=== PATIENT | female | born 1980 | race Caucasian/White ===

== ENCOUNTER 2016-08-16 12:42 | Emergency (ER) | payer OTHER ==
[2016-08-16 13:19] VITALS: BP 104/66
--- OUTSIDE RECORDS SUMMARY | 2016-08-16 14:29 | XMS REPORT | Continuity of Care Document ---
:1980 Author Organization [facility] ([facility]) Address [address] [place] [address] Phone [phone] Care Team Providers Name Role Phone Provider, No-Primary Care Primary Care Provider Unavailable Source Comments This disclosure is being made pursuant to the Care Everywhere program, applicable federal and state laws, and may not contain all informaitonavailable regarding this patient.[facility] ([facility]) Active Allergies and Adverse Reactions Not on File Current Medications Not on file Active Problems Not on file Social History Tobacco Use Types Packs/Day Years Used Date Never Assessed Plan of Care Health Maintenance Due Date Last Done Comments Hepatitis B Vaccine (1 of 3 - Primary Series) 1980 Tdap Vaccine 1992 Lipid Disorder Screening 12/03/1999 MMR Vaccine 12/03/1999 Td Vaccine 12/03/1999 Varicella Vaccine (1 of 2 - Adult - No Evidence of 12/03/1999 Immunity) Cervical Cancer Screening 12/03/2011 Influenza Vaccine: Seasonal (#1) 12/29/2015 Results from Last 3 Months Not on file
== END 2016-08-16 13:58 | disposition left against medical advice (07) ==
LOC: ER 12:42
DX: Z53.21 Procedure and treatment not carried out due to patient leaving prior to being seen by health care provider (principal)

== ENCOUNTER 2016-08-26 08:26 | Emergency (ER) | payer OTHER ==
--- OUTSIDE RECORDS SUMMARY | 2016-08-26 08:44 | XMS REPORT | Continuity of Care Document ---
:1980 Author Organization [facility] ([facility]) Address [address] [place] [address] Phone [phone] Care Team Providers Name Role Phone Provider, No-Primary Care Primary Care Provider Unavailable Source Comments This disclosure is being made pursuant to the Care Everywhere program, applicable federal and state laws, and may not contain all informaitonavailable regarding this patient.[facility] ([facility]) Active Allergies and Adverse Reactions Not [...]
--- NOTE | 2016-08-26 08:46 | ERNOTE ---
ER Female HPI Stated Complaint: HEAVY BLEEDING Presenting Symptoms: vaginal bleeding Time Seen by Provider: 08/26/16 08:37 Source: patient Immunizations: IMMUNIZATION HX Immunizations Up to Date Yes History of Influenza Vaccine Yes Hx Pneumococcal Vaccination Yes Allergies/Adverse Reactions: Allergies meperidine HCl [From Demerol] Adverse Reaction (Verified 08/26/16 08:36) Vomiting Home Medications: HOME MEDICATIONS NK [No Home Medication] 08/16/16 [Last Taken Unknown] - History of Present Illness Narrative: Patient stated that 2 hours ago she developed some lower pelvis and right side of the lower pelvis cramping with vaginal bleeding with possible tissue. Timing: Present: intermittent Quality: Present: moderate Activities at Onset: Present: none Prior Abdominal Problems: Present: none Review of Systems - Review of Systems Constitutional: Present: See HPI EYE: Present: no symptoms reported ENT: Present: no symptoms reported Respiratory: Present: no symptoms reported Cardiology: Present: no symptoms reported Gastrointestinal/Abdominal: Present: no symptoms reported Genitourinary: Present: no symptoms reported Musculoskeletal: Present: no symptoms reported Skin: Present: no symptoms reported Neurological: Present: no symptoms reported Endocrine: Present: no symptoms reported Hematologic/Lymphatic: Present: no symptoms reported Psych: Present: no symptoms reported - Patient's Past Medical History Patient History - Medical: Other Patient History - Cardiac/Respiratory: No pertinent hx Patient History - Cancer: No Hx of Cancer Patient History - Surgical Procedures: Patient History - Other: None LMP (females 10-50): - Family History Mother Family History - Medical: Arthritis Family History - Cardiac/Respiratory: No pertinent hx - Social History Living Situations: parents Abuse History: No History of abuse Psych History: No pertinent hx Smoking Status: Current every day smoker Alcohol Use: none Drug Use: none - Immunizations Immunizations Up to Date: Yes Hx Pneumococcal Vaccination: Yes History of Influenza Vaccine: Yes Physical Exam - Physical Exam General Appearance: Present: wd/wn, alert, mild distress Eye Exam: Normal inspection: bilateral, PERRL: bilateral Ears, Nose, Throat: Present: normal ENT inspection, H, normal pharynx Neck: Present: normal inspection, nontender Respiratory: Present: no respiratory distress, normal breath sounds, no accessory muscle use, chest nontender, lungs clear Cardiovascular/Chest: Present: regular rate, rhythm, no murmur, normal peripheral pulses Gastrointestinal/Abdominal: Present: normal bowel sounds, nondistended, soft, no organomegaly, tenderness Rectal Exam: Present: deferred Back Exam: Present: normal inspection, normal range of motion Extremity Exam: Present: normal inspection, non-tender, no edema, normal range of motion Neurological Exam: Present: alert, oriented, normal mood/affect Skin Exam: Present: normal color, warm/dry Lymphatic Exam: Present: no adenopathy Pelvic Exam: Present: active bleeding, tender adnexa - on the right ED Progress - Results and Orders Patient's Lab Results:: I have reviewed the patient's lab results. - Vital Signs Patient's Vital Signs:: I have reviewed the patient's vital signs. Vital Signs: Vital Signs 08/26/16 08:29 Temperature 36.7 C Pulse Rate 104 H Respiratory 14 Rate Blood Pressure 103/64 O2 Sat by Pulse 97 Oximetry - CT/Ultrasound CT/Ultrasound Narrative: pelvic US noted - Progress/Reassessment Chief Complaint: OB Screening Plan - Plan Plan: I had a long discussion with the patient regarding the possibility of this being a miscarriage although certainly ectopic cannot be excluded. Aidan to call her OB physician and talk with him about the next step that she may need to take. Patient will need to have a repeat hCG as well as a repeat ultrasound to make sure that this is not been due to an ectopic and that this is most likely a miscarriage. She appeared to understand the instructions and she will call her OB doctor today for an appointment. Departure Clinical Impression: Incomplete miscarriage - Departure Disposition: Home self-care Condition: Good Instructions: Vaginal Bleeding During , First Trimester Referrals: Loco Delgado MD [Primary Care Provider] - Gerhard Solis DO [Staff Physician] -
[2016-08-26 09:01] LABS: Hematocrit 36.6 % (37.0-47.0); Hemoglobin 12.5 gm/dL (12.5-16.0); Mean Cell Volume 91.5 fl (78-100); Mean Corpuscular Hemoglobin 31.3 pg (27-31); Mean Corpuscular Hgb Conc 34.2 g/dl (32-36); Mean Platelet Volume 10.4 fl (6.0-9.5); Neutrophil # 4.6 K/mm3 (1.3-6.0); Neutrophil % 73.3 % (42-75.0); Platelet Count 188 K/mm3 (150-450); Red Cell Distribution Width 12.9 % (11.5-14.0); White Blood Count 6.2 K/mm3 (4.0-10.5)
[2016-08-26 09:13] LABS: Prothrombin Time (Patient) 9.9 Seconds (9.4-11.4)
[2016-08-26 09:15] LABS: INR 0.95 INR (0.90-1.10)
[2016-08-26 09:19] LABS: Albumin * 3.4 gm/dl (3.4-5.0); Anion Gap 10.8 mmol/L (6.8-13.8); BUN/Creatinine Ratio 12.8 (9.0-21.6); Bilirubin, Total 0.3 mg/dL (0.0-1.1); Ca. Corrected For Albumin 8.7 mg/dL (8.4-10.2); Calcium * 8.5 mg/dL (7.9-10.9); Potassium 3.8 mmol/L (3.4-4.6); Total Protein 6.3 gm/dL (6.2-8.2)
[2016-08-26 11:12] VITALS: BP 99/55
== END 2016-08-26 12:09 | disposition home or self-care (01) ==
LOC: ER 08:26
DX: O03.4 Incomplete spontaneous abortion without complication (principal); Z72.0 Tobacco use

== ENCOUNTER 2016-10-28 11:23 | Observation (INO) | payer OTHER ==
[2016-10-28] MEDS ORDERED: KETOROLAC TROMETHAMINE 30 MG/ML VIAL IV ONE (11:43)
--- NOTE | 2016-10-28 11:44 | ERNOTE ---
ER Female HPI Date of Service: 10/28/16 Stated Complaint: SICK Presenting Symptoms: vaginal bleeding Time Seen by Provider: 10/28/16 11:33 Source: patient, RN notes reviewed, past records Exam Limitations: clinical condition Immunizations: IMMUNIZATION HX Immunizations Up to Date Yes History of Influenza Vaccine Yes Hx Pneumococcal Vaccination Yes Allergies/Adverse Reactions: Allergies meperidine HCl [From Demerol] Adverse Reaction (Verified 10/28/16 11:37) Vomiting Home Medications: HOME MEDICATIONS NK [No Home Medication] 08/16/16 [Last Taken Unknown] - History of Present Illness Narrative: Derek is a 35-year-old female brought to the emergency department by EMS for vaginal bleeding that began last evening. She reports recently having a miscarriage. She initially stated this was 2 weeks ago, but on review of her chart she was seen here on August 26 with vaginal bleeding and a decreasing quantitative hCG level. She was to follow up with her GIFT MANAGER after that for serial quants and never did do this. She reports having a normal menses approximately a month ago. She believes that she passed some tissue at that time, she reports her bleeding was not excessive and ended after a few days. She reports that she has currently been saturating a pad every 2 hours and has been passing clots of various sizes. She is also having cramping in her lower abdomen and low back. She has not taken anything for pain. She also reports that she was last sexually active 2 days ago and was not having any bleeding at that time. She is a 5 para 1. She is Rh-. Quality: Present: severe, cramping Onset Location: Present: RLQ, LLQ, suprapubic Radiation: Present: back Activities at Onset: Present: none Sexual [place] History: Present: less than 2 months ago Associated Symptoms: Present: nausea, low back pain. Absent: fever/chills, diaphoresis, vomiting, dysuria, urinary frequency Prior Treatment: Present: recently seen. Absent: currently on antibiotics Review of Systems - Review of Systems Constitutional: Present: fatigue, malaise. Absent: recent illness, fever EYE: Present: no symptoms reported ENT: Present: no symptoms reported Respiratory: Absent: shortness of breath, cough Cardiology: Absent: chest pain, palpitations, syncope Gastrointestinal/Abdominal: Present: nausea. Absent: vomiting, diarrhea, constipation Genitourinary: Present: pain. Absent: frequency, dysuria Musculoskeletal: Present: back pain. Absent: joint pain Skin: Absent: rash, lesions Neurological: Absent: headache, dizziness/light-headedness Endocrine: Present: no symptoms reported Hematologic/Lymphatic: Absent: easy bruising, easy bleeding Psych: Present: no symptoms reported - Patient's Past Medical History Patient History - Medical: Anemia, Other - Genital warts Patient History - Cardiac/Respiratory: No pertinent hx Patient History - Cancer: No Hx of Cancer Patient History - Surgical Procedures: Appendectomy, Patient History - Other: None LMP (Calendar): 09/27/16 - Family History Mother Family History - Medical: Arthritis Family History - Cardiac/Respiratory: No pertinent hx - Social History Living Situations: parents Abuse History: No History of abuse Psych History: No pertinent hx Smoking Status: Current every day smoker Alcohol Use: none Drug Use: none - Immunizations Immunizations Up to Date: Yes Hx Pneumococcal Vaccination: Yes History of Influenza Vaccine: Yes Physical Exam - Physical Exam General Appearance: Present: wd/wn, no apparent distress, other - groggy, seems to be under the influence of something Neck: Present: normal inspection, nontender, supple, full range of motion Respiratory: Present: no respiratory distress, normal breath sounds, no accessory muscle use, lungs clear Cardiovascular/Chest: Present: regular rate, rhythm, no murmur, normal peripheral pulses Gastrointestinal/Abdominal: Present: normal bowel sounds, nondistended, soft, tenderness - lower abdomen. Absent: guarding, rebound, mass Back Exam: Present: normal inspection, no CVA tenderness, no vertebral tenderness Extremity Exam: Present: normal inspection, normal range of motion, no edema Neurological Exam: Present: oriented. Absent: alert - Drowsy, slow speech, normal mood/affect Skin Exam: Present: normal color, warm/dry Pelvic Exam: Present: active bleeding - mild to moderate with dime sized clots, lesions - condyloma present on labia , other - Quarter size bright red blood on peter-pad when pelvic exam performed at 1300 - patient reports that she has been wearing this pad since 1030 ED Progress - Results and Orders Patient's Lab Results:: I have reviewed the patient's lab results. - Vital Signs Patient's Vital Signs:: I have reviewed the patient's vital signs. Vital Signs: Vital Signs 10/28/16 11:24 Temperature 36.7 C Blood Pressure 95/66 O2 Sat by Pulse 99 Oximetry - CT/Ultrasound CT/Ultrasound Narrative: Technique: Transabdominal and transvaginal pelvic ultrasound was performed per protocol. Color flow and spectral Doppler techniques were used. Comparison:None. Findings: Transabdominal pelvic ultrasound: The uterus measures approximately 11.8 cm in length by 6.4 cm AP by 8.5 cm transverse. There is a markedly heterogeneous appearance of the uterus. Limited evaluation of the endometrium, lower uterine segment and cervix. There is suggestion of heterogeneity with fluid collections and increased vascular flow within the uterus. Limited evaluation of the ovaries. The right ovary measures 3.1 x 3.5 x 2.3 cm. The left ovary measures approximately 3.7 x 1.8 x 2.9 cm. No obvious ovarian mass or cyst. There is no obvious adnexal mass. Limited evaluation the urinary bladder is unremarkable. Transvaginal pelvic ultrasound: Transvaginal pelvic ultrasound was performed to better evaluate the endometrium, lower uterine segment and cervix. The uterus measures approximately 12.1 cm in length by 7.2 cm AP by 9.1 cm transverse. There are changes from prior section. The uterus is otherwise normal in contour. There is marked abnormal thickening of the endometrium measuring 4.9 cm with internal cystic spaces. Additionally, there is marked internal vascularity. There is trace fluid within the endocervical canal. There is a small nabothian cyst. The right ovary measures approximately 3.7 x 1.9 x 2.3 cm. The left ovary measures approximately 1.7 x 3.2 x 2.1 cm. There is symmetric color flow and pulsatile flow to the ovaries. No solid or cystic ovarian mass. There is no discrete adnexal mass. There is a small amount of pelvic free fluid. Impression: 1. Marked abnormal appearance of the endometrium. Differential diagnosis includes retained products of conception versus molar . Additionally, given the marked increased internal flow, coexistent endometritis and/or a uterine AV malformation cannot entirely be excluded. 2. Normal sonographic appearance of the ovaries. 3. Additional findings and comments are as above. Electronically signed by Alfredo Chua D.O.. - Progress/Reassessment Chief Complaint: Genitourinary Problem Progress:: Unchanged Progress Note-Subjective: 10/28/16 15:44 Once patient had returned from her ultrasound, she and her friend were informed several times by myself and by nursing staff that we were awaiting ultrasound results. At 1505 the patient was sitting on the exam table in C5 and her friend was noted to be walking out of the department to his vehicle. A short time after that, the patient apparently left the department. A few minutes later, she called the department reporting an increase in her bleeding and asked for advice. She was instructed to call 911. She was brought back by ambulance after having a significant amount of vaginal bleeding as she was sitting in a pool of blood on the EMS cart and her clothing is saturated with blood. She reports that she could not sit here any longer and she walked to the [employer] nearby. She apparently became syncopal upon ambulance arrival as well. Her ultrasound report does show possible retained products of conception. Dr. Pereyra he contacted regarding her market increase in bleeding and ultrasound results. He plans to see her in the department and take her to the operating room for a suction curettage. 10/28/16 15:55 Dr. Solis in to see patient. 10/28/16 16:20 Patient taken to OR. Became syncopal while changing into a gown at approximately 1545. Responded to sternal rub, was pale and diaphoretic but BP remained stable and HR was in 60's. 2nd IV and NS bolus initiated. Departure Clinical Impression: Incomplete miscarriage, Vaginal hemorrhage, Medical non-compliance, Drug abuse - Departure Disposition: [facility] Condition: Serious
--- OUTSIDE RECORDS SUMMARY | 2016-10-28 11:48 | XMS REPORT | Continuity of Care Document ---
:1980 Author Organization [facility] ([facility]) Address [address] [place] [address] Phone [phone] Care Team Providers Name Role Phone Provider, No-Primary Care Primary Care Provider Unavailable Source Comments This disclosure is being made pursuant to the Care Everywhere program, applicable federal and state laws, and may not contain all informaitonavailable regarding this patient.[facility] ([facility]) Active Allergies and Adverse Reactions Not [...]
[2016-10-28] MEDS ORDERED: KETOROLAC TROMETHAMINE 30 MG/ML VIAL ONE (11:56)
[2016-10-28 11:57] LABS: Hematocrit 32.7 % (37.0-47.0); Mean Cell Volume 90.6 fl (78-100); Mean Corpuscular Hemoglobin 30.5 pg (27-31); Mean Corpuscular Hgb Conc 33.6 g/dl (32-36); Mean Platelet Volume 10.1 fl (6.0-9.5); Neutrophil # 2.5 K/mm3 (1.3-6.0); Neutrophil % 57.6 % (42-75.0); Platelet Count 171 K/mm3 (150-450); Red Blood Count 3.61 M/mm3 (4.2-5.4); Red Cell Distribution Width 13.4 % (11.5-14.0); White Blood Count 4.3 K/mm3 (4.0-10.5)
[2016-10-28 12:20] LABS: Albumin * 3.1 gm/dl (3.4-5.0); Anion Gap 8.8 mmol/L (6.8-13.8); BUN/Creatinine Ratio 11.9 (9.0-21.6); Bilirubin, Total 0.6 mg/dL (0.0-1.1); Ca. Corrected For Albumin 8.5 mg/dL (8.4-10.2); Calcium * 8.1 mg/dL (7.9-10.9); Potassium 3.8 mmol/L (3.4-4.6); Total Protein 5.5 gm/dL (6.2-8.2)
[2016-10-28 13:01] LABS: Urine Bilirubin Negative (NEGATIVE); Urine Ketone Negative (NEGATIVE); Urine Nitrite Negative (NEGATIVE); Urine Protein Negative (NEGATIVE); Urine Specific Gravity 1.015 SP.GR. (1.005-1.010); Urine Urobilinogen Normal (NORMAL)
[2016-10-28 13:21] LABS: Cocaine Ur Negative (NEGATIVE); Urine Barbiturate Negative (NEGATIVE); Urine Benzodiazepines Negative (NEGATIVE); Urine Opiates Negative (NEGATIVE); Urine PCP Negative (NEGATIVE); Urine THC Positive (NEGATIVE)
[2016-10-28 13:27] LABS: Urine Appearance Clear; Urine Bacteria 1+; Urine Blood 5 /ul (NEGATIVE); Urine Color Yellow; Urine WBC TRACE /hpf (0-5)
[2016-10-28 16:01] LABS: Hematocrit 31.1 % (37.0-47.0); Hemoglobin 10.3 gm/dL (12.5-16.0); Mean Corpuscular Hemoglobin 30.5 pg (27-31); Mean Corpuscular Hgb Conc 33.1 g/dl (32-36); Mean Platelet Volume 10.1 fl (6.0-9.5); Neutrophil # 3.8 K/mm3 (1.3-6.0); Neutrophil % 60.9 % (42-75.0); Platelet Count 206 K/mm3 (150-450); Red Blood Count 3.38 M/mm3 (4.2-5.4); Red Cell Distribution Width 13.5 % (11.5-14.0); White Blood Count 6.2 K/mm3 (4.0-10.5)
[2016-10-28] MEDS ORDERED: RINGERS SOLUTION,LACTATED 1,000 ML IV ONE ×4 (16:30→18:25)
[2016-10-28] MEDS ORDERED: NORMAL SALINE 1,000 ML IV ONE (16:30)
--- OUTSIDE RECORDS SUMMARY | 2016-10-28 16:37 | XMS REPORT | Continuity of Care Document ---
:1980 Author Organization [facility] ([facility]) Address [address] [place] [address] Phone [phone] Care Team Providers Name Role Phone Provider, No-Primary Care Primary Care Provider Unavailable Source Comments This disclosure is being made pursuant to the Care Everywhere program, applicable federal and state laws, and may not contain all informaitonavailable regarding this patient.[facility] ([facility]) Active Allergies and Adverse Reactions Not on [...]
[2016-10-28] MEDS ORDERED: LIDOCAINE HCL/EPINEPHRINE 20 ML VIAL IJ ONE (16:45)
[2016-10-28] MEDS ORDERED: diphenhydrAMINE HCL 25 MG CAPSULE PO PRN (18:48)
[2016-10-28] MEDS ORDERED: DEXTROSE 5%-LACTATED RINGERS 1,000 ML IV PRN (18:48)
[2016-10-28] MEDS ORDERED: oxyCODONE HCL/ACETAMINOPHEN 1 TAB TABLET PO PRN ×2 (18:48)
[2016-10-28] MEDS ORDERED: BISACODYL 10 MG SUPP.RECT RC PRN (18:48)
[2016-10-28] MEDS ORDERED: SENNOSIDES 8.6 MG TABLET PO PRN (18:48)
[2016-10-28 19:16] LABS: Mean Cell Volume 93.6 fl (78-100); Mean Corpuscular Hemoglobin 30.5 pg (27-31); Mean Corpuscular Hgb Conc 32.6 g/dl (32-36); Mean Platelet Volume 10.3 fl (6.0-9.5); Neutrophil # 6.4 K/mm3 (1.3-6.0); Neutrophil % 84.1 % (42-75.0); Platelet Count 119 K/mm3 (150-450); Red Blood Count 2.33 M/mm3 (4.2-5.4); Red Cell Distribution Width 13.6 % (11.5-14.0); White Blood Count 7.6 K/mm3 (4.0-10.5)
[2016-10-28 19:22] LABS: INR 1.15 INR (0.90-1.10); Partial Thrombolplastin Time 26.7 Seconds (24-32)
--- NOTE | 2016-10-28 19:22 | OR ---
Operative Report - Dictated Report Narrative: DATE OF PROCEDURE: 10/28/16 INDICATION: 35-year-old 5 para 1 with incomplete AB from approximately 2 months ago presents to [facility] ER with severe hemorrhage. Suction curettage removed the products of conception but failed to control her bleeding. Balloon tamponade not of the uterine cavity also failed to control the bleeding. An attempt was made to control bleeding with the NovaSure device, however, because of the brisk bleeding we were unable to get the device to function properly. Because of the persistent brisk bleeding and already large blood loss we proceeded with hysterectomy. PREOPERATIVE DIAGNOSIS: Incomplete AB, severe hemorrhage POSTOPERATIVE DIAGNOSIS: Same PROCEDURE: Suction curettage, intrauterine balloon tamponade on, attempted NovaSure ablation, total vaginal hysterectomy with bilateral salpingectomy, bilateral uterosacral ligament colpopexy, cystoscopy SURGEON: Sara Solis D.O. [employer]RAFTER PLUM[employer]ING: OR staff ANESTHESIA: IV sedation with local paracervical block converted to general anesthesia ESTIMATED BLOOD LOSS: 700 mL URINE OUTPUT: 200 mL FLUID REPLACEMENT: 2300 mL FINDINGS: Large amount of clot extruding from the cervical os which was dilated to 1 cm. 11 week size boggy uterus with large amount of products of conception. Steady gush of blood after removing clot from the cervical os uncontrolled with suction curettage and balloon tamponade. Normal-appearing ovaries and tubes. Large amount of blood in the posterior cul-de-sac. 5mm circular bladder polyp near central dome of bladder. Normal-appearing ureteral orifices with freely spurting urine. Condyloma acuminata of the vulva and vaginal orifice. SPECIMEN(S): Products of conception, uterus and cervix, bilateral fallopian tubes TECHNIQUE: Patient was taken to the operating room and placed in dorsal lithotomy position after adequate IV sedation. The anterior lip of the cervix was grasped with a long Allis clamp and paracervical block was given using 1% lidocaine with epinephrine. A 9 mm curved suction curet was inserted through the cervical canal into the uterine cavity. Suction was applied and the products of conception were removed. Blood continued to gush and spurt from the cervical os. The suction curet was inserted once again removing a large amount of blood but no further products of conception. Brisk bleeding persisted so a 24 Romansh Norton catheter was inserted into the uterine cavity with the balloon inflated with 70 mL of sterile saline. Tension was applied to catheter. No further bleeding occurred from the cervical os but the uterine cavity continued to enlarge and blood was pushed through the fallopian tubes into the abdominal cavity. Attempt was made to coagulate the endometrial cavity with the NovaSure ablation, but because of the brisk bleeding we were unable to get an adequate seal to allow the NovaSure device to function. Because of the persistent bleeding and large blood loss we proceeded with hysterectomy. The patient was given 2 g of Ancef intravenously while preparation was made to proceed with hysterectomy. The cervix was grasped with 2 single-tooth tenacula and a posterior colpotomy was performed using Michaud scissors. A long weighted speculum was placed into the posterior cul-de-sac. Anterior colpotomy was performed with Michaud scissors and a right angle [place] retractor was placed to retract the bladder. The bladder pillars were coagulated with the LigaSure device and transected. The left uterosacral ligament was grasped with a curved [place] transected and [place] stitch tied. The exact same was done on the other side. The remaining pedicles were then sequentially doubly coagulated and transected distally using the LigaSure device. Because of the size of the uterus, it was bivalved to allow access to the ovarian pedicles. The fallopian tubes were coagulated with the LigaSure device transected and removed. Because of significant uterine prolapse, the uterosacral pedicles were shortened. The right uterosacral ligament was placed on tension and grasped with an Allis clamp at the level of the ischial spine. Suture from the uterosacral pedicle was brought through the upper portion of the uterosacral ligament at the level of the ischial spine and then back through the vaginal cuff. This was repeated on the left side. The vaginal cuff was closed with a series of [id number] Vicryl sutures. The corner sutures were tied pulling the cuff up to the level of the ischial spine. Cystoscopy was performed noting urine spurting freely from both ureteral orifices. The bladder was drained and the patient was transferred to postanesthesia care unit in stable condition. Sponge, lap, instrument, and needle count were correct x 2. DISPOSITION: The patient was transferred to postanesthesia care unit in stable condition.
[2016-10-28 19:26] LABS: Hemoglobin 7.1 gm/dL (12.5-16.0)
[2016-10-28 19:27] LABS: Hematocrit 21.8 % (37.0-47.0)
--- OUTSIDE RECORDS SUMMARY | 2016-10-28 19:33 | XMS REPORT | Continuity of Care Document ---
:1980 Author Organization [facility] ([facility]) Address [address] [place] [address] Phone [phone] Care Team Providers Name Role Phone Provider, No-Primary Care Primary Care Provider Unavailable Source Comments This disclosure is being made pursuant to the Care Everywhere program, applicable federal and state laws, and may not contain all informaitonavailable regarding this patient.[facility] ([facility]) Active Allergies and Adverse Reactions Not [...]
[2016-10-28] MEDS: IBUPROFEN 800 MG TABLET PO PRN (20:01)
[2016-10-28] MEDS: DOCUSATE SODIUM 100 MG CAPSULE PO SCH (20:01)
[2016-10-29] MEDS ORDERED: CALCIUM CARBONATE 500 MG TAB.CHEW PO PRN (01:39)
[2016-10-29] MEDS: IBUPROFEN 800 MG TABLET PO PRN (07:27)
--- NOTE | 2016-10-29 09:18 | PN ---
Subjective - Date and Time Seen Date: 10/29/16 Time: 09:08 Objective - Review of Systems Generalized/Overall Review: Reports: No Symptoms Reported Respiratory: Reports: No Symptoms Reported Cardiac: Reports: No Symptoms Reported Abdominal: Reports: No Symptoms Reported Genitourinary Symptoms: Reports: No Symptoms Reported Musculoskeletal Complaints: Reports: No Symptoms Reported Neurological: Reports: No Symptoms Reported Skin: Reports: No Symptoms Reported - Vitals Vitals: Last Vital Signs Temp 36.9 C 10/29/16 07:27 Pulse 84 10/29/16 07:27 Resp 18 10/29/16 07:27 BP 89/43 10/29/16 07:27 Pulse Ox 100 10/29/16 07:27 - Exam Constitutional: Present: Alert, Oriented x3, Cooperative, No distress Breasts: Present: Exam deferred Respiratory: Present: no respiratory distress Cardiovascular/Chest: Present: normal peripheral pulses, regular rate, rhythm, no edema /Rectal: Present: Exam deferred Extremity: Present: non-tender, no pedal edema, no calf tenderness Skin Exam: Present: warm/dry, no cyanosis, pallor - mild around lips Neurologic: Present: oriented x 3, depressed affect - mild Appearance: Present: appropriate appearance, appropriate insight, no memory impairment Eye contact: Present: cooperative, good eye contact, normal speech Thoughts: Present: normal thought pattern, normal mood /affect - considering her circumstances Assessment/Plan - Problems/Diagnosis (1) Anemia due to blood loss, acute Problem: Acute Narrative: Repeat CBC this am. Continue with iron supplementation BID. F/u in office in 2 wks. (2) Incomplete miscarriage Problem: Resolved (3) Vaginal hemorrhage Problem: Resolved (4) Status post hysterectomy Problem: Acute Narrative: Doing unexpectedly well. Avoid heavy lifting or sexual activity for 6 wks.
[2016-10-29 09:28] LABS: Mean Cell Volume 90.7 fl (78-100); Mean Corpuscular Hemoglobin 30.9 pg (27-31); Mean Corpuscular Hgb Conc 34.1 g/dl (32-36); Mean Platelet Volume 9.9 fl (6.0-9.5); Neutrophil # 4.2 K/mm3 (1.3-6.0); Neutrophil % 73.7 % (42-75.0); Platelet Count 122 K/mm3 (150-450); Red Blood Count 2.04 M/mm3 (4.2-5.4); Red Cell Distribution Width 13.4 % (11.5-14.0); White Blood Count 5.7 K/mm3 (4.0-10.5)
[2016-10-29 09:31] LABS: Hematocrit 18.5 % (37.0-47.0); Hemoglobin 6.3 gm/dL (12.5-16.0)
[2016-10-29] MEDS: DOCUSATE SODIUM 100 MG CAPSULE PO SCH (09:39)
[2016-10-29 12:16] VITALS: BP 83/32
--- NOTE | 2016-11-03 11:38 | DS ---
(1) Anemia due to blood loss, acute Problem: Acute (2) Incomplete miscarriage Problem: Resolved (3) Vaginal hemorrhage Problem: Resolved (4) Status post hysterectomy Problem: Acute Description of Stay: 35-year-old female admitted through the emergency room for emergent surgery due to severe vaginal hemorrhage due to an incomplete SAB. Suction curettage was performed but failed to stop her brisk bleeding. An intrauterine balloon was placed to try to control the hemorrhage and tamponade the bleeding. This was unsuccessful so we proceeded with attempt at NovaSure ablation. Because of the brisk bleeding we're unable to get an adequate seal to allow the NovaSure device to deploy. As a last resort, we proceeded with total vaginal hysterectomy. Throughout this process patient lost approximately 700 mL of blood. Because of the significant blood loss, the patient was admitted for 23 hour observation with the anticipation of a blood transfusion. Over the 24- hour period the patient's hemoglobin dropped from 11.0 to 6.3. Despite the large blood loss, patient remained asymptomatic. She denied lightheadedness, dizziness, or weakness. She was ambulating easily throughout the halls and room without difficulty. Her pain was minimal and controlled with only Motrin. Orthostatic blood pressures were positive by pulse but her blood pressure remained stable and actually increased with position changes. Transfusion of packed red blood cells was recommended and offered to the patient several times , which she declined. Because patient was clinically doing very well despite her critical laboratory values, the recommendation for blood was not pushed. She was discharged to home on postop day #1 with routine post hysterectomy orders, precautions, and limitations. She was instructed to call if she developed any hypovolemic/hypotensive signs/symptoms. Procedures Performed: see notes below List Procedures: Suction Curettage, Attempted Novasure ablation, Total vaginal hysterectomy with intrafascial colpopexy, cystoscopy, IV fluid resuscitation Discharge Disposition: Home self care Disposition: Home self-care Condition: Good Discharge Activity: Activity as tolerated, No Lifting Discharge Diet: General/regular food Problem Oriented Discharge Instructions to Patient/Family: Vaginal Hysterectomy , Care After [employer] Additional Patient Instructions (free text): No heavy lifting or sex for 6 weeks Follow up with Dr. Solis in the clinic in 1 - 2 weeks on 11-04-16 @ 2:15pm. Prescriptions (Any new or edited meds): Docusate Sodium [Colace] 100 mg PO BID #28 capsule Ferrous Sulfate 325 mg PO BID #60 tablet Ibuprofen [Motrin] 200 - 800 mg PO Q6H PRN #100 tab PRN Reason: Pain oxyCODONE HCL/ACETAMINOPHEN [Percocet 5 MG/325 MG] 1 tab PO Q4H PRN #20 tablet PRN Reason: Moderate Pain Complete Home Medications List: Complete Home Medication List: Docusate Sodium [Colace] 100 mg PO BID #28 capsule 10/29/16 Ferrous Sulfate 325 mg PO BID #60 tablet 10/29/16 Ibuprofen [Motrin] 200 - 800 mg PO Q6H PRN #100 tab 10/29/16 oxyCODONE HCL/ACETAMINOPHEN [Percocet 5 MG/325 MG] 1 tab PO Q4H PRN #20 tablet 10/29/16
== END 2016-10-29 14:35 | disposition home or self-care (01) ==
LOC: ER 11:23 → AMB 16:34 → MS 19:29
PROVIDERS: ADMIT Obstetrics & Gynecology; ATTEND Obstetrics & Gynecology
PROC: 0UT97ZZ Resection of Uterus, Via Natural or Artificial Opening (ICD-10-PCS; 2016-10-28)
PROC: 0UTC7ZZ Resection of Cervix, Via Natural or Artificial Opening (ICD-10-PCS; 2016-10-28)
PROC: 0UB77ZZ Excision of Bilateral Fallopian Tubes, Via Natural or Artificial Opening (ICD-10-PCS; 2016-10-28)
PROC: 0TJB8ZZ Inspection of Bladder, Via Natural or Artificial Opening Endoscopic (ICD-10-PCS; 2016-10-28)
PROC: 10D17ZZ Extraction of Products of Conception, Retained, Via Natural or Artificial Opening (ICD-10-PCS; principal; 2016-10-28 16:30)
PROC: 0W3R7ZZ Control Bleeding in Genitourinary Tract, Via Natural or Artificial Opening (ICD-10-PCS; 2016-10-28 16:30)
DX: O03.1 Delayed or excessive hemorrhage following incomplete spontaneous abortion (principal); O03.39 Incomplete spontaneous abortion with other complications; D62 Acute posthemorrhagic anemia; Z72.0 Tobacco use
CPT/HCPCS: 36415; 52000; 58260; 58353; 59812; 76830; 76856; 80053; 80307; 81001; 84702; 85025; 85384; 85610; 85730; 86850; 86900; 87081; 87086; 88305; 88307; 96374; 99285; G0378; G0481